=== PATIENT | female | born 1995 | race Caucasian/White ===

== ENCOUNTER 2020-09-07 10:55 | Emergency (ER) | payer OTHER, SELFPAY ==
--- NOTE | ~2020-09-07 | CT_ITS ---
EXAMINATION: CT cervical spine wo con DATE: 09/07/2020 12:05 INDICATION: Fall. Neck pain. TECHNIQUE: Computed tomography (CT) of the cervical spine was performed without intravenous contrast. Automated exposure control and iterative reconstruction technique were employed. Exam dose: 437.32 mGy-cm total exam DLP. COMPARISON: None FINDINGS: There is straightening of the cervical spine which may be positional or due to muscle spasm . C1 and C2 are normally aligned and the odontoid process is intact. No fracture or dislocation or lock ed facet or prevertebral soft tissue swelling. Cervical interspaces are preserved. IMPRESSION: Straightening Reviewed, dictated and finalized at [facility]. Reviewed, dictated and finalized at [facility]. IMPRESSION: Straightening
--- NOTE | ~2020-09-07 | CT_ITS ---
EXAMINATION: CT brain wo con DATE: 09/07/2020 12:04 INDICATION: Patient fell and struck head. Generalized headache. TECHNIQUE: Computed tomography (CT) of the head was performed without intravenous contrast. The mA wa s adjusted according to patient size. Iterative reconstruction technique was employed. Exam dose: 60 5.33 mGy-cm total exam DLP. COMPARISON: 09/20/2016 CT brain FINDINGS: No intracranial mass lesion or hemorrhage or cerebrovascular accident or encephalomalacia. No midline shift or mass effect. Normal ventricular size. Normal schmidt-white matter differentiation. No subdural or epidural hematoma. There is patchy soft tissue thickening of the ethmoid air cells bilaterally. The included paranasal s inuses and mastoid air cells otherwise are unremarkable. No fracture or bone destruction of the cranial vault. IMPRESSION: No significant intracranial abnormality or skull fracture Reviewed, dictated and finalized at [facility]. Reviewed, dictated and finalized at [facility].
[2020-09-07 11:14] VITALS: BP 141/85; PULSE 91; RESP 18; TEMP 36.9; O2SAT 99
--- NOTE | 2020-09-07 11:31 | ECG_ITS ---
Measurements Intervals Rebuck Rate: 72 P: 32 CA: 167 QRS: 24 QRSD: 76 T: 26 QT: 362 QTc: 399 Interpretive Statements SINUS RHYTHM WITH SINUS ARRHYTHMIA BASELINE WANDER- I, II, AVR, AVL, AVF, V1-V3 NORMAL ECG Electronically Signed On 09-07-2020 12:53:39 CDT by Yahir Nails D.O.
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
[2020-09-07] MEDS: MECLIZINE HCL 25 MG TABLET PO (11:50)
[2020-09-07 11:51] LABS: Basophils Absolute Auto 0.1 K/mm3 (0.0-0.1); Basophils Percent Auto 0.8 % (0.2-1.2); Eosinophils Absolute Auto 0.3 K/mm3 (0-0.3); Eosinophils Percent Auto 4.1 % (0-4.4); Hematocrit 40.5 % (37.0-47.0); Hemoglobin 13.5 g/dL (12.0-15.0); Immature Granulocyte Absolute 0.04 K/mm3 (0.00-0.031); Immature Granulocyte Percent A 0.5 % (0-0.5); Lymphocytes Percent Auto 26.3 % (18.3-44.2); Mean Corpuscular HGB Conc 33.3 g/dl (32-36); Mean Corpuscular Hemoglobin 31.3 pg (26-34); Mean Platelet Volume 8.9 fl (7.4-10.4); Monocytes Absolute Auto 0.6 K/mm3 (0.1-0.6); Monocytes Percent Auto 6.9 % (2.6-8.5); Neutrophils Absolute Auto 4.9 K/mm3 (1.3-6.7); Neutrophils Percent Auto 61.4 % (45.5-73.1); Platelet Count Result 209 k/mm3 (150-375); Red Blood Count 4.31 M/mm3 (4.2-5.4); Red Cell Distribution Width 11.4 % (11.5-14.5)
[2020-09-07 12:02] LABS: Anion Gap 6 mmol/L (8-16); Blood Urea Nitrogen 11 mg/dL (7-17); Calcium 9.3 mg/dL (8.4-10.2); Carbon Dioxide 29 mmol/L (22-30); Chloride 102 mmol/L (98-107); Estimated CRCL calculation 121 ml/min; Estimated Glomerular Filt Rate > 60; Glucose 97 mg/dL (65-110); Sodium 137 mmol/L (137-145)
[2020-09-07 12:45] VITALS: BP 107/76; PULSE 73; RESP 15; O2SAT 99
[2020-09-07 12:58] LABS: Add Urine Microscopic? YES; Appearance Urine Cloudy (Clear); Bacteria Urine Trace /hpf; Bilirubin Urine Negative (Negative); Blood Urine Negative (Negative); Color Urine Straw (Yellow); Glucose Urine UA Negative (Negative); Ketones Urine Negative (Negative); Leukocyte Esterase Ur 2+ LEU/UL (Negative); Nitrate Urine Negative (Negative); Protein Urine Negative (Negative); Specific Grav Ur 1.005 (1.001-1.035); Squamous Epithelial Cell Urine Many /hpf (Few); Urobilinogen Urine Negative mg/dL (<2.0); WBC Urine 16-20 /hpf
[2020-09-07 13:35] VITALS: RESP 16
== END 2020-09-07 13:36 | disposition home or self-care (01) ==
PROVIDERS: Emergency Provider Emergency Medicine
DX: S09.90XA Unspecified injury of head, initial encounter (principal); R42 Dizziness and giddiness; Y04.0XXA Assault by unarmed brawl or fight, initial encounter
CPT/HCPCS: 36415; 70450; 72125; 80048; 81001; 81025; 85025; 87086; 87088; 93005; 99284; A9270